=== PATIENT | male | born 1945 | race African-American/Black ===

== ENCOUNTER 2017-03-15 13:42 | Emergency (ER) | payer OTHER ==
[~2017-03-15] VITALS: Ht 157.5 cm; Wt 81.6 kg
[~2017-03-15 13:42] MED LIST: CYCLOBENZAPRINE10 M1 PO; MOBIC15 M1 PO; TRAMADOL50 MG PO
[2017-03-15 13:52] VITALS: BP 143/78
--- NOTE | 2017-03-15 17:14 | ED GENERAL ADULT ---
History of Present Illness General Chief Complaint: General Adult Stated Complaint: PT DRANK SOMETHING AND HASN'T FELT GOOD SINCE Source: patient Exam Limitations: no limitations Vital Signs & Intake/Output Vital Signs & Intake/Output Vital Signs Date Time Temp Pulse Resp B/P B/P Pulse O2 O2 Flow FiO2 Mean Ox Delivery Rate 03/15 1352 97.4 90 18 143/78 98 Room Air ED Intake and Output 03/16 0000 03/15 1200 Intake Total 0 Output Total Balance 0 Intake, Oral 0 Patient 180 lb Weight Weight Estimated Measurement Method Allergies Coded Allergies: NO KNOWN ALLERGIES (12/06/16) Reconcile Medications Cyclobenzaprine HCl 10 MG TABLET 1 TAB PO TID SPASMS Meloxicam (Mobic) 15 MG TABLET 1 TAB PO DAILY pain TRAMADOL HCL (Tramadol) 50 MG TABLET 1 TAB PO Q6P PRN PAIN Triage Note: PATIENT TO ER C/C DIARRHEA X 2 S/P DRINKING UNKNOWN LIQUID SUBSTANCE 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 PATIENT STATES HE DRANK ALMOST A FULL WATER BOTTLE OF ?OIL MAYBE COOKING OIL. Triage Nurses Notes Reviewed? yes Onset: Abrupt Duration: hour(s): (7), better, gone now Timing: single episode today Injury Environment: home Severity: mild, moderate No Modifying Factors: none HPI: 71-year-old male past medical history of hypertension, myocardial infarction with cardiac arrest presents for evaluation after drinking cooking oil. Patient states that there was a water bottle filled with water and a water bottle filled with these cooking oil sitting next to him. He states that around 11 AM this morning approximately 7 hours ago he drank about half a water bottle of cooking oil by mistake. Patient states that he immediately felt nauseous and his stomach felt "warm". Several minutes later he had multiple episodes of watery diarrhea. He states that since then he has felt better and he has been asymptomatic for about the past 3 hours. He denies any abdominal pain chest pain shortness of breath melena or bloody diarrhea. He states immediately after drinking the oIl he drank 2 water bottles of water. He's been able to eat and drink normally since. He is feeling well and denies any current concerns. (Clarence Garcia) Past History Travel History Traveled to [place] past 21 day No Medical History Any Pertinent Medical History? see below for history Cardiovascular: hypertension, aicd Surgical History Surgical History: non-contributory Psychosocial History Who do you live with Spouse Services at Home None What is your primary language Setswana Tobacco Use: Never used Family History Hx Contributory? No (Clarence Garcia) Review of Systems Review of Systems Constitutional: Reports: no symptoms. EENTM: Reports: no symptoms. Respiratory: Reports: no symptoms. Cardiovascular: Reports: no symptoms. GI: Reports: no symptoms. Genitourinary: Reports: no symptoms. Musculoskeletal: Reports: no symptoms. Skin: Reports: no symptoms. Neurological/Psychological: Reports: no symptoms. Hematologic/Endocrine: Reports: no symptoms. Immunologic/Allergic: Reports: no symptoms. All Other Systems: Reviewed and Negative (Clarence Garcia) Physical Exam Physical Exam General Appearance: well developed/nourished, no apparent distress, alert, awake Head: atraumatic, normal appearance Eyes: Bilateral: normal appearance, PERRL, EOMI. Ears, Nose, Throat: normal pharynx, normal ENT inspection, hearing grossly normal Neck: normal inspection, supple, full range of motion Respiratory: normal breath sounds, chest non-tender, no respiratory distress, lungs clear Cardiovascular: regular rate/rhythm, normal peripheral pulses Peripheral Pulses: 2+ radial (R), 2+ radial (L) Gastrointestinal: normal bowel sounds, soft, non-tender, no organomegaly Back: normal inspection, normal range of motion, no vertebral tenderness Extremities: normal inspection, normal range of motion Neurologic/Psych: no motor/sensory deficits, awake, oriented x 3, normal gait Skin: intact, normal color, warm/dry Core Measures ACS in differential dx? No CVA/TIA Diagnosis: No Sepsis Present: No Sepsis Focused Exam Completed? No (Clarence Garcia) Progress Differential Diagnoses I considered the following diagnoses in my evaluation of the patient: [Ingestion of cooking oil] Plan of Care: Patient seen and evaluated. He currently is asymptomatic. He states he accidentally drank about half a bottle of cooking little had diarrhea afterwards. He is able to currently tolerate fluids is feeling well he has no concerns. Offered patient workup including blood work and EKG however patient is currently refusing. He states that he feels fine and wants to go home. Patient appears clinically well. His exam is normal. He'll be discharged home with instructions to drink plenty of fluids and eat bland foods follow-up with primary care doctor. Patient is nontoxic-appearing and agrees the plan. Case discussed with Dr. Wilson she agrees. Initial ED EKG: none (Clarence Garcia) Departure Departure Disposition: HOME OR SELF CARE Condition: Stable Clinical Impression Primary Impression: Diarrhea Qualifiers: Diarrhea type: unspecified type Qualified Code: R19.7 - Diarrhea, unspecified Referrals: Cachorro Lundberg MD (PCP/Family) Additional Instructions: rest and drink plently of fluids. monitor your symptoms. if you have worsening diarrhea, chest pain , trouble breathing or any other concerns return to the ED immeidatly. Departure Forms: Customer Survey General Discharge Information (Clarence Garcia) PA/PSYCHOLOGICAL EXAMINER Co-Sign Statement Statement: ED Attending supervision documentation- [X] I saw and evaluated the patient. I have also reviewed all the pertinent lab results and diagnostic results. I agree with the findings and the plan of care as documented in the PA's/PSYCHOLOGICAL EXAMINER's documentation. [X] I have reviewed the ED Record and agree with the PA's/PSYCHOLOGICAL EXAMINER's documentation. [] Additions or exceptions (if any) to the PAs/PSYCHOLOGICAL EXAMINER's note and plan are summarized below: [] (Steve DAVIS,[place]) Critical Care Note Critical Care Note Critical Care Time: non-applicable (Clarence Garcia)
== END 2017-03-15 17:20 ==
LOC: ERH 13:42
DX: R19.7 Diarrhea, unspecified (principal)
CPT/HCPCS: 99282